=== PATIENT | female | born 1985 | race Caucasian/White ===

== ENCOUNTER 2022-06-28 14:50 | Emergency (ER) | payer BC, SELFPAY ==
[2022-06-28 14:50] VITALS: BP 130/73; PULSE 86; RESP 16; TEMP 36.3; O2SAT 98; BMI 30.9
--- NOTE | 2022-06-28 14:54 | EDS_ITS ---
HPI History of Present Illness Chief Complaint: Abd Pain Narrative Narrative: 36-year-old female here with abdominal pain. Patient notes she is moving furniture 3 days ago when this pain started. She locates the pain to the lower mid abdomen right lower quadrant. States pain is worse with moving, doing crunches or coughing. Denies any urinary complaints. Denies any change of bowel habit. Denies any fever or nausea or vomiting. Notes history of 2 C- sections but denies any other abdominal surgeries. The patient notes she has had a tubal ligation and does not think she is . PFSH PFSH Medical History no medical history Home Medications NK 06/28/22 [History Last Taken Unknown] Allergy/AdvReac Type Severity Reaction Status Date / Time No Known Allergies Allergy Verified 06/28/22 14:52 Surgical History no surgical history Social History Smoking Status: Former smoker ROS ROS ED ROS Narrative Constitutional: Denies fever HEENT: Denies sore throat Neck: Denies neck pain Cardiovascular: Denies chest pain, syncope Respiratory: Denies shortness of breath GI: Endorses abdominal pain : Denies changes in urinary habits Musculoskeletal: Denies muscle or joint pain Neurologic: Denies numbness weakness or loss of sensation Skin denies rash EXAM Physical Exam Narrative Exam Narrative: Nursing triage notes reviewed, Vital signs reviewed Constitutional: please see mdm HENT: MMM Eyes: Pupils equal round and reactive to light, Extraocular muscles intact Neck: No stridor, no JVD, full neck ROM Lungs: Clear to auscultation, No wheezing or rales. No increased work of breathing, no conversational dyspnea, no accessory muscle use, no nasal flaring. No respiratory distress noted Heart: Regular rate and rhythm, No murmurs, No rubs and No gallops, 2+ distal pulses (radial, femoral, posterior tibial) in all extremities Abdomen: Point tenderness over the right lower quadrant of the abdomen, no rebound or guarding or peritoneal signs. TTP is exacerbated by abdominal crunching, abdominal rotation. : No CVAT Extremities: No edema Neuro: No focal neurological deficits, cranial nerves II through XII intact, 5/5 strength in all extremities. Intact sensation to light touch in all extremities, 2+ reflexes bilateral patella dens. Normal gait. No ataxia. Skin: No rash or lesions noted Const Vital Signs: 06/28/22 14:50 Temperature 97.4 F L Temperature Source Temporal Pulse Rate 86 Respiratory Rate 16 Blood Pressure 130/73 H Blood Pressure Mean 92 Pulse Ox 98 Oxygen Delivery Method Room Air MDM MDM MDM Narrative Medical decision making narrative: Chief Complaint: Abdominal pain External records reviewed: No recent advanced imaging the abdomen or pelvis noted in the MDM: Patient was hemodynamically stable, afebrile, nontoxic-appearing. Abdominal exam with point tenderness over the mid to right lower abdomen I considered the following differential diagnosis: Appendicitis, acute surgical pathology the belly, musculoskeletal strain, UTI, related complication The patient's history of lifting heavy object and having abdominal pain is worse with movement and contraction of her rectus abdominis is consistent with musculoskeletal etiology. Patient's abdominal exam is not peritonitic, is a nonsurgical abdomen. A low suspicion for acute appendicitis. I did obtain blood work to rule out signs of systemic inflammation, UTI, signs of endorgan hypoperfusion, pancreatitis or hepatobiliary pathology. I treated the patient 1 L normal saline, give her Toradol for anti-inflammatory effect. Labs showed no evidence of systemic inflammation, endorgan hypoperfusion or other concerning findings to suggest an acute intra-abdominal process. This is consistent with my exam my clinical impression. Patient is likely suffering from musculoskeletal abdominal pain secondary to moving heavy objects at work. She is appropriate discharge home with ongoing RICE therapy and close PCP follow-up. Factors affecting care: Obesity Social determinants of health: None History obtained from others: None Shared decision making: I will have a discussion with the patient and or visitors regarding risk/benefits of further testing or admission. They will be made aware of of the risk/benefits inherent in this decision they will be given the opportunity to voice understanding. Consults: none Lab Data Attestation: I reviewed the patient's lab results. Lab results narrative: CBC without leukocytosis, severe anemia, no thrombocytopenia. BMP without evidence of significant electrolyte abnormalities, no anion gap, no acute kidney injury. LFTs with mild elevation in liver enzymes, no hyperbilirubinemia, no signs of ob structive hepatobiliary pathology with a normal alkaline phosphatase UA with no evidence of infection Labs: Laboratory Results - last 24 hr 06/28/22 06/28/22 06/28/22 15:15 15:15 15:26 WBC 7.3 RBC 4.39 Hgb 12.7 Hct 38.7 MCV 88.2 MCH 28.9 MCHC 32.8 RDW Std Deviation 39.6 RDW Coeff of South 12.2 Plt Count 284 MPV 8.8 Immature Gran % (Auto) 0.300 Neut % (Auto) 69.2 Lymph % (Auto) 25.1 [place] % (Auto) 4.8 Eos % (Auto) 0.3 Baso % (Auto) 0.3 Absolute Neuts (auto) 5.1 Absolute Lymphs (auto) 1.84 Nucleated RBC % 0 Sodium 139 Potassium 3.7 Chloride 106 Carbon Dioxide 28.0 Anion Gap 5 BUN 15 Creatinine 0.81 Estim Creat Clear Calc 90.75 Est GFR (MDRD) Af Amer 103 Est GFR (MDRD) Non-Af 85 BUN/Creatinine Ratio 18.5 Glucose 83 Calcium 8.9 Total Bilirubin 0.20 Direct Bilirubin 0.13 AST 46 H ALT 97 H Alkaline Phosphatase 70 Total Protein 7.0 Albumin 3.6 Globulin 3.4 Lipase 29 Urine Color Yellow Urine Clarity Clear Urine pH 7.0 Ur Specific [place] 1.010 Urine Protein Negative Urine Glucose (UA) Normal Urine Ketones Negative Urine Occult Blood Negative Urine Nitrite Negative Urine Bilirubin Negative Urine Urobilinogen Normal Ur Leukocyte Esterase Negative Treatment and Re-Evaluation :: Repeat abdominal exam remained benign the patient is appropriate for discharge home. Discharge Plan Triage Chief Complaint: Abd Pain ED Provider: Florentino Monte Dx/Rx/DC Orders Clinical Impression: Abdominal muscle strain Instructions: ED Muscle Strain, Abdomen Prescriptions: No Action NK Stand Alone Forms: ED Work / School Excuse Primary Care Provider: Care Physician,Josselin Primary Referrals: NOT,DEFINED [Non-Staff] - Activity Restrictions/Additional Instructions: Thank you for trusting us with your care today! Please take Tylenol (2 pills, 650 mg), ibuprofen (2 pills, 400 mg) every 6 hours as needed for pain and fever control. Please return to the emergency department if your symptoms change or worsen. Please follow with your primary care physician for further outpatient evaluation and management. Disposition Disposition: Home, Self Care
[2022-06-28] MEDS: 0.9% Normal Saline 1,000 ML 1000 ML IV (15:23)
[2022-06-28] MEDS: Ketorolac 15 MG/ML Vial IV (15:23)
[2022-06-28 15:26] LABS: Absolute Lymphocyte Count 1.84 X10^3/uL (0.83-4.51); Absolute Neutrophil Count 5.1 X10^3/uL (2.0-7.7); Basophil# 0.02 X10^3/uL; Basophil% 0.3 % (0-1); Eosinophil# 0.02 X10^3/uL; Eosinophils% 0.3 % (0-5); Hematocrit 38.7 % (37-47); Hemoglobin 12.7 g/dL (12.0-15.0); Lymphocyte # 1.84 X10^3/ul (0.83-4.51); Lymphocyte % 25.1 % (19-41); Mean Corp Hgb Conc 32.8 g/dL (32-36); Mean Corpuscular Hgb 28.9 pg (27.0-32.0); Mean Corpuscular Volume 88.2 fL (81-99); Mean Platelet Vol. 8.8 fl (6.2-12.0); Monocyte# 0.35 X10^3/uL; Monocyte% 4.8 % (0-10); NRBC Flagged by Analyzer 0 % (0-5); Neutrophil # 5.09 X10^3/uL (2.7-7.7); Neutrophil % 69.2 % (47-70); Platelet Count 284 K/mm3 (150-450); RBC Distribution Width CV 12.2 % (11.6-14.6); RBC Distribution Width SD 39.6 fl (35.1-43.9); Red Blood Count 4.39 M/mm3 (4.2-5.4); White Blood Count 7.3 K/mm3 (4.4-11.0)
[2022-06-28 15:43] LABS: Color, Urine Yellow (Yellow); Glucose, Dipstick Normal (Normal); Ketone-Dipstick Negative (Negative); Leukocyte Esterase-Dipstick Negative /ul (Negative); Nitrite-Dipstick Negative (Negative); Occult Blood-Urine Negative /ul (Negative); Protein-Dipstick Negative (Negative); Urine Bilirubin Dipstick Negative (Negative); Urine Clarity Clear (Clear); Urine Urobilinogen Normal (Normal)
[2022-06-28 15:44] LABS: AST(SGOT) 46 U/L (15-37); Alanine Aminotransfer ALT/SGPT 97 U/L (13-56); Albumin, Serum 3.6 g/dL (3.2-5.0); Alkaline Phosphatase 70 U/L (45-117); Anion Gap 5 (5-15); BUN 15 mg/dL (7-18); BUN/Creat Ratio 18.5 RATIO (10-20); Bilirubin, Direct 0.13 mg/dL (0.00-0.30); Calcium,Total 8.9 mg/dL (8.5-10.1); Chloride 106 mmol/L (98-107); Creatinine, Serum 0.81 mg/dL (0.55-1.02); EST Glomerular Filtration Rate 85 mL/min (>60); Est Glom Filt Rate - Afr Amer 103 mL/min (>60); Estimated Creatinine Clearance 90.75 ml/min; Globulin 3.4 g/dL (2.2-4.2); Glucose 83 mg/dL (74-106); Lipase 29 U/L (13-75); Potassium 3.7 mmol/L (3.5-5.1); Sodium Level 139 mmol/L (136-145)
[2022-06-28 16:38] VITALS: BP 124/66; PULSE 52; RESP 16; O2SAT 98
== END 2022-06-28 16:39 | disposition home or self-care (01) ==
PROVIDERS: Emergency Provider Emergency Medicine; Visit Provider Emergency Medicine
DX: S39.011A Strain of muscle, fascia and tendon of abdomen, initial encounter (principal); E66.9 Obesity, unspecified; Z87.891 Personal history of nicotine dependence; X58.XXXA Exposure to other specified factors, initial encounter
CPT/HCPCS: 80048; 80076; 81002; 83690; 85025; 96374; 99282; J7030; A4216

== ENCOUNTER 2023-04-27 15:21 | Emergency (ER) | payer BC, SELFPAY ==
[2023-04-27 15:22] VITALS: BP 107/62; PULSE 82; RESP 16; TEMP 36.5; O2SAT 97; BMI 23.3
--- NOTE | 2023-04-27 15:42 | EX.ED.DYSGE1 ---
HPI <ALISON Johnson - Last Filed: 04/27/23 17:32> History of Present Illness Chief Complaint: Cold Sx Narrative Narrative: 37-year-old female with no past medical history has had 9 days of flulike symptoms. She has had fever, chills, shakes, congestion and sore throat, productive cough and shortness of breath. She had some nausea and diarrhea which is clearing up. She has had several sick contacts in her family. She did a telehealth visit and was told it is likely viral and was prescribed an antiemetic but did not pick it up. She states she might need an antibiotic. She vapes. No history of asthma or COPD. PFSH <ALISON Johnson Last Filed: 04/27/23 17:32> [facility] Home Medications NK 06/28/22 [History Last Taken Unknown] azithromycin 250 mg tablet 250 mg PO DAILY #4 TABLETS 04/27/23 [Rx Last Taken Unknown] Allergy/AdvReac Type Severity Reaction Status Date / Time No Known Allergies Allergy Verified 04/27/23 15:22 Social History Smoking Status: Current every day smoker tobacco type: e-cigarettes ROS <ALISON Johnson Last Filed: 04/27/23 17:32> ROS ED ROS Narrative Constitutional: Positive for fever, chills, malaise. ENT: Positive for sore throat, ear pain, rhinorrhea. CVS: Negative for chest pain. Respiratory: Positive for cough. Neuro: Negative for headache. EXAM <ALISON Johnson - Last Filed: 04/27/23 17:32> Physical Exam Narrative Exam Narrative: CONST: Patient sitting in no acute distress. EYES: Normal inspection. ENT: Normal posterior oropharynx, moist mucous membranes. Nares clear, normal TMs bilaterally. NECK: Normal inspection. No meningismus. RESP: No respiratory distress, CTAB. CVS: Regular rate and rhythm, no murmur, no gallop. ABD: Soft and nontender, no guarding or rebound, nondistended. SKIN: Color normal, no rash, warm, dry, intact. EXTREMITIES: Normal appearance, no pedal edema. NEURO: Oriented x4. PSYCH: Normal affect. Const Vital Signs: 04/27/23 15:22 04/27/23 16:28 04/27/23 17:44 Temperature 97.7 F L 97.7 F L Temperature Source Oral Pulse Rate 82 82 Respiratory Rate 16 16 Respiratory Pattern Normal Blood Pressure 107/62 107/62 Blood Pressure Mean 77 77 Pulse Ox 97 97 Oxygen Delivery Method Room Air <Dr. Sridhar Hoffman DO - Last Filed: 04/27/23 22:20> Physical Exam Const Vital Signs: 04/27/23 15:22 04/27/23 16:28 04/27/23 17:44 Temperature 97.7 F L 97.7 F L Temperature Source Oral Pulse Rate 82 82 Respiratory Rate 16 16 Respiratory Pattern Normal Blood Pressure 107/62 107/62 Blood Pressure Mean 77 77 Pulse Ox 97 97 Oxygen Delivery Method Room Air MDM <ALISON Johnson - Last Filed: 04/27/23 17:32> [facility] Narrative Medical decision making narrative: Differential: Viral URI, pneumonia Patient has had flulike symptoms for 8 to 9 days. Still having a cough and occasional shortness of breath. She appears well and nontoxic. Vital signs stable. Exam is benign. Swab is positive for influenza B and CXR shows small bilateral infiltrates. Since she has been symptomatic for about 9 days I prescribed a Z-Wilbert to cover for bacterial pneumonia and an albuterol inhaler. First dose of antibiotic was given here. She was discharged in stable condition Radiography Diagnostic Testing: Clinical Impression(s) from Imaging Studies Chest X-Ray 04/27/23 15:55 IMPRESSION: Right middle lobe and mild left lower lobe pneumonic infiltrate Electronically Signed: Memo Parish MD at 16:08 EST Reading Location ID and State: [facility] / [place] Tel , Service support , ED attending interpretation of 2 view chest x-ray shows normal heart size, bilateral infiltrates <Dr. Sridhar Hoffman DO - Last Filed: 04/27/23 22:20> [facility] Narrative Medical decision making narrative: Differential: Viral URI, pneumonia Patient has had flulike symptoms for 8 to 9 days. Still having a cough and occasional shortness of breath. She appears well and nontoxic. Vital signs stable. Exam is benign. Swab is positive for influenza B and CXR shows small bilateral infiltrates. Since she has been symptomatic for about 9 days I prescribed a Z-Wilbert to cover for bacterial pneumonia and an albuterol inhaler. First dose of antibiotic was given here. She was discharged in stable condition This patient was seen with a PA/PORT CDL A DRIVER Individually assessed they patient including history and physical. I have reviewed everything on the chart that is available and agree with the documentation provided by the PA/PORT CDL A DRIVER including discussion about the assessment, treatment plan, discussion, and return precautions. Patient presenting with 8 to 9 days of flulike symptoms. Initially started feeling better but states he started to have fevers again. Patient tested positive for influenza B. Chest x-ray does show infiltrates and I do believe at this point since he is still symptomatic she might have developed a postviral pneumonia. She will be started on Eyemycin. She is amenable to this. Patient given albuterol for home. Return precautions discussed. Radiography Diagnostic Testing: Clinical Impression(s) from Imaging Studies Chest X-Ray 04/27/23 15:55 IMPRESSION: Right middle lobe and mild left lower lobe pneumonic infiltrate Electronically Signed: Memo Parish MD at 16:08 EST Reading Location ID and State: [address] [place] [address] Tel , Service support , Discharge Plan Triage Chief Complaint: Cold Sx ED Midlevel Provider: Carlene Osborne ED Provider: Sridhar Hoffman Dx/Rx/DC Orders Clinical Impression: Influenza B, Pneumonia Instructions: ED Influenza (Adult), ED Pneumonia (Adult) Prescriptions: New azithromycin 250 mg tablet 250 mg PO DAILY Qty: 4 0RF Rx Instructions: start on day 2 of therapy No Action NK Primary Care Provider: Care Physician,No Primary Referrals: Care Physician,No Primary [Primary Care Provider] - Activity Restrictions/Additional Instructions: You tested positive for influenza B. Your chest x-ray shows pneumonia. Since you have had symptoms for 8 to 9 days we will cover you for bacterial pneumonia with an antibiotic and inhaler as needed. Disposition Disposition: Home, Self Care Discharge Date/Time: 04/27/23 17:44
[2023-04-27] MEDS: Acetaminophen 500 MG Tablet 1000 MG PO (15:54)
--- NOTE | 2023-04-27 15:55 | RAD_ITS ---
STUDY: X-RAY CHEST REASON FOR EXAM: Female, 37 years old. cough TECHNIQUE: PA and lateral COMPARISON: None. FINDINGS: Mild infiltrate in the right middle lobe and to lesser extent the left lower lobe. There is no demonstrated pleural abnormality. Normal size heart. Normal mediastinum and maura. Normal visualized pulmonary arteries. Normal visualized aortic arch and descending thoracic aorta. Normal visualized thoracic spine. Normal visualized ribs, clavicles, and shoulders. There is no demonstrated abnormality of the visualized soft tissue structures of the upper abdomen. RAD/Chest PA and Lateral IMPRESSION: Right middle lobe and mild left lower lobe pneumonic infiltrate Electronically Signed: Memo Parish MD at 16:08 EST ,
[2023-04-27] MEDS: Azithromycin 250 MG Tablet 500 MG PO (17:42)
[2023-04-27] MEDS: Albuterol Sulfate 8 gm Inhaler (60 puffs) 2 PUFF INHALATION (17:42)
[2023-04-27 17:44] VITALS: BP 107/62; PULSE 82; RESP 16; TEMP 36.5; O2SAT 97
== END 2023-04-27 17:44 | disposition home or self-care (01) ==
LOC: ED 15:47
PROVIDERS: Emergency Provider Student in an Organized Health Care Education/Training Program; Visit Provider Student in an Organized Health Care Education/Training Program
DX: J10.00 Influenza due to other identified influenza virus with unspecified type of pneumonia (principal); R19.7 Diarrhea, unspecified; F17.290 Nicotine dependence, other tobacco product, uncomplicated
CPT/HCPCS: 71046; 87631; 99282